=== PATIENT | female | born 1960 | race African-American/Black ===

== ENCOUNTER 2018-01-08 21:54 | Emergency (ER) | payer BC ==
[~2018-01-08] VITALS: Ht 172.7 cm; Wt 72.0 kg
[2018-01-08] MEDS ORDERED: IBUPROFEN 800MG TABLET PO ONE (23:00)
[2018-01-09 01:12] VITALS: BP 142/76
== END 2018-01-09 01:20 | disposition home or self-care (01) ==
LOC: ER 22:14
DX: M25.561 Pain in right knee (principal); I10 Essential (primary) hypertension; V43.52XA Car driver injured in collision with other type car in traffic accident, initial encounter; Y93.89 Activity, other specified; Y92.488 Other paved roadways as the place of occurrence of the external cause
CPT/HCPCS: 73562; 99284